=== PATIENT | female | born 1990 | race African-American/Black ===

== ENCOUNTER 2021-12-01 20:22 | Emergency (ER) | payer SELFPAY ==
[~2021-12-01] VITALS: Ht 167.6 cm; Wt 98.0 kg
[2021-12-02 01:00] VITALS: BP 123/57
== END 2021-12-02 01:30 | disposition home or self-care (01) ==
LOC: ER 20:22
DX: U07.1 COVID-19 (principal)
CPT/HCPCS: 99281; C9803; U0003; U0005